=== PATIENT | male | born 1955 | race American Indian/Alaskan Native ===

== ENCOUNTER 2019-03-06 08:14 | Emergency (ER) | payer BC ==
[2019-03-06] MEDS ORDERED: ASPIRIN 325 MG TAB PO ONE (08:33)
--- NOTE | 2019-03-06 09:12 | XRay Report ---
CHEST 1 VIEW INDICATION: Chest Pain. COMPARISON: None. FINDINGS: Support devices: None. Heart: Normal. Lungs/Pleura: No acute pulmonary or pleural findings. IMPRESSION: 1. No acute findings. Signer Name: Farhan Barrow MD Signed: 03/06/2019 9:08 AM Workstation Name: [id number]
[2019-03-06 09:33] LABS: Basophils # (Auto) 0.1 K/mm3 (0.0-0.1); Basophils % (Auto) 0.7 % (0.0-1.8); Eosinophils # (Auto) 0.1 K/mm3 (0.0-0.4); Eosinophils % (Auto) 1.5 % (0.0-4.3); Hematocrit 43.4 % (35.5-45.6); Hemoglobin 15.2 gm/dl (11.8-15.2); Lymphocytes # (Auto) 2.5 K/mm3 (1.2-5.4); Mean Corpuscular HGB Conc 35 % (32-34); Mean Corpuscular Volume 83 fl (84-94); Monocytes # (Auto) 0.6 K/mm3 (0.0-0.8); Monocytes % (Auto) 8.3 % (0.0-7.3); Platelet Count 219 K/mm3 (140-440); Red Blood Count 5.25 M/mm3 (3.65-5.03); Red Cell Distribution Width 14.4 % (13.2-15.2)
[2019-03-06 09:57] LABS: BUN/Creatinine Ratio 16; Blood Urea Nitrogen 13 mg/dL (9-20); Calcium 9.4 mg/dL (8.4-10.2); Hemolysis Index 21
[2019-03-06] MEDS ORDERED: KETOROLAC 30 MG/1 ML INJ IV ONE (15:14)
[2019-03-06] MEDS ORDERED: FAMOTIDINE 20 MG/2 ML INJ IV ONE (15:14)
[2019-03-06] MEDS ORDERED: SODIUM CHLORIDE 0.9% 1000 ML 1,000 ML IV ONE (15:14)
[2019-03-06] MEDS ORDERED: ACETAMINOPHEN 500 MG TAB PO ONE (15:14)
--- NOTE | 2019-03-06 15:17 | Emergency Department Report ---
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 This patient is not known to ME PREviously PMD: DR Carrington PMH: hypertension, "prostate." patient uncertain if he has additional past history denies family cardiac history and dvt/pe risk factors The patient presents to the ER with a complaint of central chest wall pain, intermittent over the past 4 days, which worsens with palpation, heavy lifting, physical exertion, and decreases with rest. The pain does not radiate to the back, arms or neck. There is no vomiting or diaphoresis. There is no exertional shortness of breath. The pain increases with deep inspiration, and palpation. He reports recently performing heavy lifting at work. No recent aspirin consumption. No recent cocaine use. He endorses urinary hesitancy, but no testicular pain, and denies rectal pain. He thinks any might have dysuria, but he is not certain. He reports a normal bowel movement this morning. He reports that he is not constipated. There is no headache, neck pain, abdominal pain, lower extremity complaint at this time. -: Gradual, days(s) Location: chest Quality: aching Consistency: intermittent Improves with: rest Worsens with: other (palpation, movement) - Related Data Previous Rx's Medication Instructions Recorded Last Taken Type Acetaminophen [Non-Aspirin Extra 500 mg PO Q6HR PRN #30 tablet 03/06/19 Unknown Rx Strength] Aspirin [Aspirin BABY CHEW TAB] 81 mg PO QDAY #30 tab.chew 03/06/19 Unknown Rx Famotidine [Pepcid] 20 mg PO BID #60 tablet 03/06/19 Unknown Rx Ibuprofen [Motrin] 600 mg PO Q8H PRN #30 tablet 03/06/19 Unknown Rx Allergies Allergy/AdvReac Type Severity Reaction Status Date / Time No Known Allergies Allergy Unverified 03/06/19 08:33 ED Review of Systems ROS: Stated complaint: CHEST PAIN SEVERE Other details as noted in HPI Constitutional: denies: diaphoresis, fever Eyes: denies: eye discharge ENT: denies: congestion Respiratory: denies: wheezing Cardiovascular: chest pain. denies: syncope Gastrointestinal: denies: vomiting Genitourinary: other. denies: testicular pain, testicular mass Musculoskeletal: denies: myalgia Skin: denies: lesions Neurological: denies: weakness Hematological/Lymphatic: denies: easy bleeding ED Past Medical Hx - Past Medical History Previous Medical History?: Yes Hx Hypertension: Yes Additional medical history: prostate"hurt when i pee", - Surgical History Past Surgical History?: No - Social History Smoking Status: Never Smoker Substance Use Type: None - Medications Home Medications: Home Medications Medication Instructions Recorded Confirmed Last Taken Type Acetaminophen [Non-Aspirin Extra 500 mg PO Q6HR PRN #30 tablet 03/06/19 Unknown Rx Strength] Aspirin [Aspirin BABY CHEW TAB] 81 mg PO QDAY #30 tab.chew 03/06/19 Unknown Rx Famotidine [Pepcid] 20 mg PO BID #60 tablet 03/06/19 Unknown Rx Ibuprofen [Motrin] 600 mg PO Q8H PRN #30 tablet 03/06/19 Unknown Rx ED Physical Exam - General Limitations: No Limitations General appearance: alert, in no apparent distress - Head Head exam: Present: atraumatic, normocephalic - Eye Eye exam: Present: normal appearance, EOMI. Absent: nystagmus - ENT ENT exam: Present: normal exam, normal orophraynx, mucous membranes moist, normal external ear exam - Neck Neck exam: Present: normal inspection, full ROM. Absent: tenderness, meningismus - Respiratory Respiratory exam: Present: normal lung sounds bilaterally, chest wall tenderness. Absent: respiratory distress - Cardiovascular Cardiovascular Exam: Present: regular rate, normal rhythm, normal heart sounds. Absent: bradycardia, tachycardia, irregular rhythm, systolic murmur, diastolic murmur, rubs, gallop - GI/Abdominal GI/Abdominal exam: Present: soft. Absent: distended, tenderness, guarding, rebound, rigid, pulsatile mass - Rectal Rectal exam: Present: deferred - Extremities Exam Extremities exam: Present: normal inspection, full ROM, other (2+ pulses noted in the bilateral upper and lower extremities. The pelvis is stable. There is no long bony tenderness. The muscular compartments are soft. There is no redness, pus, streaking or erythema.). Absent: pedal edema, joint swelling, calf tenderness - Back Exam Back exam: Present: normal inspection. Absent: tenderness, CVA tenderness (R), CVA tenderness (L), paraspinal tenderness, vertebral tenderness - Neurological Exam Neurological exam: Present: alert, normal gait, other (there is no facial droop. The tongue is midline. Extraocular movements are intact bilaterally. Speaking in full sentences. Hearing is grossly intact. 5 out of 5 strength bilateral upper and lower extremities. Sensation is intact to light touch bi lateral upper and lower extremities.). Absent: motor sensory deficit - Psychiatric Psychiatric exam: Present: anxious - Skin Skin exam: Present: warm, dry, intact, normal color. Absent: rash ED Course Vital Signs 03/06/19 03/06/19 03/06/19 08:26 15:50 16:00 Temperature 98.3 F Pulse Rate 11 L 82 81 Respiratory 22 13 11 L Rate Blood Pressure 143/99 Blood Pressure 114/67 121/77 [Left] O2 Sat by Pulse 98 100 98 Oximetry 03/06/19 16:20 Temperature Pulse Rate 80 Respiratory 18 Rate Blood Pressure Blood Pressure 117/71 [Left] O2 Sat by Pulse 97 Oximetry - Reevaluation(s) Reevaluation #1: 03/06/19 16:47 Differential diagnosis, including but not limited to: GERD, gastritis, hiatal hernia, pneumonia, costochondritis, acute coronary syndrome, pulmonary embolism, UTI, BPH Assessment and plan: 63-year-old gentleman with 2 complaints Complaint #1, reproducible chest wall pain, intermittent, nonexertional, not tachycardic, tachypneic or hypoxic, with no pulmonary embolism or DVT risk factors, who is low risk by well's criteria, troponin negative 2, EKG unchanged 2. Extensive discussion had with the patient regarding options for cardiac risk stratification. Patient indicated that he would like to follow up as an outpatient to complete cardiac risk stratification. He indicates that he is reliable to follow up as an outpatient. We did offer the patient admission as a matter of convenience, but he indicates that he would like to follow up as an outpatient, and given duration of symptoms, physical exam findings, laboratory studies, I think that outpatient follow-up would be reasonable to complete an outpatient cardiac risk stratification. As for this hospital's current protocol, his contact information was transmitted to one of our local cardiology practices, or he will be contacted with close outpatient follow-up. Complaint #2, urinary hesitancy, questionable dysuria without testicular pain. There is no abdominal tenderness, rebound or guarding. He denies abdominal pain, constipation, and defecated normally this morning. A urinalysis is o rdered. 03/06/19 16:55 Reevaluation #2: 03/06/19 19:04 troponin neg x 2 d dimer negative ua negative resting comfortably EKG is unchanged 2. Suitable for follow-up as an outpatient. ED Medical Decision Making - Lab Data Result diagrams: 03/06/19 09:21 03/06/19 09:21 Vital Signs 03/06/19 03/06/19 03/06/19 08:26 15:50 16:00 Temperature 98.3 F Pulse Rate 11 L 82 81 Respiratory 22 13 11 L Rate Blood Pressure 143/99 Blood Pressure 114/67 121/77 [Left] O2 Sat by Pulse 98 100 98 Oximetry 03/06/19 16:20 Temperature Pulse Rate 80 Respiratory 18 Rate Blood Pressure Blood Pressure 117/71 [Left] O2 Sat by Pulse 97 Oximetry Lab Results 03/06/19 03/06/19 03/06/19 Range/Units 09:21 09:21 15:29 WBC 7.7 (4.5-11.0) K/mm3 RBC 5.25 H (3.65-5.03) M/mm3 Hgb 15.2 (11.8-15.2) gm/dl Hct 43.4 (35.5-45.6) % MCV 83 L (84-94) fl MCH 29 (28-32) pg MCHC 35 H (32-34) % RDW 14.4 (13.2-15.2) % Plt Count 219 (140-440) K/mm3 Lymph % (Auto) 32.0 (13.4-35.0) % Kay % (Auto) 8.3 H (0.0-7.3) % Eos % (Auto) 1.5 (0.0-4.3) % Baso % (Auto) 0.7 (0.0-1.8) % Lymph # 2.5 (1.2-5.4) K/mm3 Kay # 0.6 (0.0-0.8) K/mm3 Eos # 0.1 (0.0-0.4) K/mm3 Baso # 0.1 (0.0-0.1) K/mm3 Seg Neutrophils % 57.5 (40.0-70.0) % Seg Neutrophils # 4.5 (1.8-7.7) K/mm3 PT 13.3 (12.2-14.9) Sec. INR 1.00 (0.87-1.13) D-Dimer 199.80 (0-234) ng/mlDDU Sodium 141 (137-145) mmol/L Potassium 4.1 (3.6-5.0) mmol/L Chloride 103.3 (98-107) mmol/L Carbon Dioxide 22 (22-30) mmol/L Anion Gap 20 mmol/L BUN 13 (9-20) mg/dL Creatinine 0.8 (0.8-1.5) mg/dL Estimated GFR > 60 ml/min BUN/Creatinine Ratio 16 % Glucose 139 H (75-100) mg/dL Calcium 9.4 (8.4-10.2) mg/dL Troponin T < 0.010 (0.00-0.029) ng/mL - EKG Data -: EKG Interpreted by Ct EKG shows normal: sinus rhythm Rate: normal - EKG Data 03/06/19 16:49 There is no prior EKG available for comparison. EKG #1 shows a sinus tachycardia, 113 bpm, QT within normal limits, QTC 458 ms. There is poor R progression, there is motion artifact, the QTC is 458 ms. It is not consistent with STEMI. EKG #2 was unchanged from prior. It is not consistent with a STEMI 03/06/19 16:54 - Radiology Data Radiology results: report reviewed, image reviewed Print Report Referring Physician: ED DOC Patient Name: CARRIE CHADWICK Date of : 1955 Sex: Male Report Date: 2019-03-06 Report Status: Finalized Findings [facility] [address] [place] [address] XRay Report Signed Patient: CARRIE CHADWICK MR#: [id number] : 1955 Acct:[id number] Age/Sex: 63 / M ADM Date: 03/06/19 Loc: ED Attending Dr: Ordering Physician: ED MD KAMILLE Date of Service: 12/26/19 Procedure(s): XR chest 1V ap Accession Number(s): [id number] cc: ED DOC, Fluoro Time In Minutes: CHEST 1 VIEW INDICATION: Chest Pain. COMPARISON: None. FINDINGS: Support devices: None. Heart: Normal. Lungs/Pleura: No acute pulmonary or pleural findings. IMPRESSION: 1. No acute findings. Signer Name: Farhan Barrow MD Signed: 03/06/2019 9:08 AM Workstation Name: [id number] Transcribed By: KALIE Dictated By: Farhan Barrow MD Electronically Authenticated By: Farhan Barrow MD Signed Date/Time: 03/06/19 0908 Critical care attestation.: If time is entered above; I have spent that time in minutes in the direct care of this critically ill patient, excluding procedure time. ED Disposition Clinical Impression: Chest wall pain, Urinary hesitancy Disposition: -01 TO HOME OR SELFCARE Is pt being admited?: No Does the pt Need Aspirin: No Condition: Stable Instructions: Chest Pain (ED) Additional Instructions: Rest, avoid heavy lifting, and avoid strenuous physical activities. Take the pain medications as needed and directed. Follow-up with a lidder or heart doctor within the next 3-5 days. Please return to the emergency room right away with projectile vomiting, change in mental status, confusion, inability to tolerate liquid feeds, new, worsening or different symptoms not present on the initial emergency room evaluation. Contact any of the listed cardiology specialists to arrange close outpatient follow-up to obtain outpatient cardiac stress test. Follow-up with your primary care doctor or private urologist for nonspecific presumed chronic urinary issues. Participate in physical activities as tolerated Referrals: MICHELLE VEGA MD [Staff Physician] - 3-5 Days STEFFI IBRAHIM MD [Staff Physician] - 3-5 Days [facility] [Provider Group] - 3-5 Days [facility] [Provider Group] - 3-5 Days
[2019-03-06 18:42] LABS: Bilirubin,Urine NEG (Negative); Blood,Urine NEG (Negative); Color,Urine Yellow (Yellow); Mucus,Urine FEW /HPF; Protein,Urine <15 mg/dL mg/dL (Negative); Urobilinogen,Urine < 2.0 mg/dL (<2.0); WBC,Urine < 1.0 /HPF (0.0-6.0)
[2019-03-06 19:27] VITALS: BP 125/83
== END 2019-03-06 19:56 | disposition home or self-care (01) ==
LOC: ED 08:14
DX: R07.89 Other chest pain (principal); R39.11 Hesitancy of micturition; I10 Essential (primary) hypertension; Z79.899 Other long term (current) drug therapy
CPT/HCPCS: 36415; 71045; 80048; 81001; 82550; 83735; 84484; 85025; 85379; 85610; 87086; 93005; 93010; 99284; J1885; J7030